=== PATIENT | male | born 1935 | race Caucasian/White ===

== ENCOUNTER 2017-10-29 20:10 | Emergency (ER) | payer MEDICARE, OTHER ==
[~2017-10-29] VITALS: Ht 193 cm; Wt 105.5 kg
[2017-10-29 20:52] VITALS: TEMP 36.4; Ht 193 cm; Wt 105.5 kg
[2017-10-29] MEDS ORDERED: ONDANSETRON INJ 2 MG/ML 2 ML VIAL IV STA (23:00)
[2017-10-29] MEDS ORDERED: SODIUM CHLORIDE 0.9% 1000ML 1,000 ML IV STA (23:00)
--- NOTE | 2017-10-29 23:03 | EMERGENCY ROOM VISIT NOTE ---
History Report prepared by Serge: David Mercer Under the Supervision of: Jc ArechigaO. First contact with patient: 22:55 Chief Complaint: GI ASSESSMENT Stated Complaint: DIARRHEA, BELCHING, TASTES LIKE SEWAGE Nursing Triage Summary: Patient states "I've been dealing with diarrhea for 2 months." Family states "I took him to [place] and they said he would be fine in a couple days. Pissed me off so we came here." History of Present Illness The patient is an 82 year old male who presents to the Emergency Room with complaints of persistent diarrhea that started 2 months ago. He states that he went to see his family doctor in [place], and had blood tests and a CT scan done , and the patient was told that everything was normal and he would be fine soon. The patient states that his diarrhea has persisted, and sometimes he moves his bowels "all night long". The patient says that his stools were not tested. He notes that his abdomen is more distended than normal, and he has been having some abdominal cramping as well. The patient says that he started vomiting today. The patient adds that he has been having intermittent shortness of breath. He notes that he drinks well-water at home, but notes no recent sick contacts. He denies any fevers. He notes a history of a cholecystectomy a few months ago, but no history of bowel blockages. Source of History: patient, family Onset: 2 months ago Position: other (global - diarrhea) Timing: other (persistent) Associated Symptoms: + SOB, + vomiting, + abdominal pain (and distension), No fevers Review of Systems See HPI for pertinent positives & negatives. A total of 10 systems reviewed and were otherwise negative. Past Medical & Surgical Medical Problems: (1) HTN (hypertension) Family History Family history omitted secondary to patient's advanced age. Social History Smoking Status: Never Smoker Smokeless Tobacco Use: No Drug Use: none Occupation Status: retired Current/Historical Medications Scheduled Atorvastatin (Lipitor), 20 MG PO QAM Cholestyramine (Cholestyramine Light), 4 GM PO BID Clopidogrel (Plavix), 75 MG PO QAM Escitalopram Oxalate (Lexapro), 5 MG PO QAM Gabapentin (Neurontin), 300 MG PO QAM Allergies Coded Allergies: No Known Allergies (Unverified , 2/15/18) Physical Exam Vital Signs Date Time Temp Pulse Resp B/P (MAP) Pulse Ox O2 Delivery O2 Flow Rate FiO2 10/30/17 00:40 80 20 133/60 92 10/29/17 22:39 82 20 139/84 92 Room Air 10/29/17 20:52 36.4 98 18 124/73 95 Room Air Physical Exam GENERAL: Patient is awake, alert, and in no acute distress. Patient is resting comfortably and showing no signs of anxiety EYES: The conjunctivae are clear. The pupils are round and reactive. EARS, NOSE, MOUTH AND THROAT: The nose is without any evidence of any deformity. Mucous membranes are moist tongue is midline NECK: The neck is nontender and supple. RESPIRATORY: Normal respiratory effort is noted there is no evidence of wheezing rhonchi or rales CARDIOVASCULAR: Regular rate and rhythm noted there no murmurs rubs or gallops normal S1 normal S2 GASTROINTESTINAL: The abdomen is moderately distended and diffusely tender. No guarding or rigidity appreciated. High pitched bowel sounds noted. MUSCULOSKELETAL/EXTREMITIES: There is no evidence of gross deformity full range of motion is noted in the hips and shoulders SKIN: Pedal edema bilaterally. NEUROLOGIC: Patient is awake alert and oriented x3. Medical Decision & Procedures ER Provider Diagnostic Interpretation: Radiology results as stated below per my review and radiologist interpretation: CHEST ONE VIEW: Elevated right hemidiaphragm, heart size appears normal, no free air, no definite infiltrate. Preliminary Findings Only See Final Report For Complete Findings CT ABDOMEN & PELVIS Without Contrast: Fluid in the small and large bowel, can be seen with enteritis or diarrheal disease. No evidence of obstruction. Thickened underdistended bladder. Correlate clinically for inflammatory/ infectious or other etiology. Mesenteric stranding with small lymph nodes, nonspecific, can be seen with mesenteric adenitis/panniculitis. Right basilar atelectasis/consolidation. A 2.4 cm hyperdense nodular density posterior to the bladder, unclear etiology. Mild nonspecific perinephric stranding. Small hepatic hypodensities. Additional incidental findings. Radiologist: Cydney Turk M.D. Study ready at 23:34 and initial results transmitted at 00:13 Laboratory Results 10/29/17 22:35 Red Blood Count 5.39, Mean Corpuscular Volume 95.7, Mean Corpuscular Hemoglobin 33.0, Mean Corpuscular Hemoglobin Concent 34.5, Mean Platelet Volume 10.5, Neutrophils (%) (Auto) 76.6, Lymphocytes (%) (Auto) 13.4, Monocytes (%) (Auto) 8.2, Eosinophils (%) (Auto) 1.2, Basophils (%) (Auto) 0.3, Neutrophils # (Auto) 5.90, Lymphocytes # (Auto) 1.03, Monocytes # (Auto) 0.63, Eosinophils # (Auto) 0.09, Basophils # (Auto) 0.02 10/29/17 22:35 Test 10/29/17 22:35 10/29/17 23:00 White Blood Count 7.69 K/uL (4.8-10.8) Red Blood Count 5.39 M/uL (4.7-6.1) Hemoglobin 17.8 g/dL (14.0-18.0) Hematocrit 51.6 % (42-52) Mean Corpuscular Volume 95.7 fL (80-100) Mean Corpuscular Hemoglobin 33.0 pg (25-34) Mean Corpuscular Hemoglobin Concent 34.5 g/dl (32-36) Platelet Count 242 K/uL (130-400) Mean Platelet Volume 10.5 fL (7.4-10.4) Neutrophils (%) (Auto) 76.6 % Lymphocytes (%) (Auto) 13.4 % Monocytes (%) (Auto) 8.2 % Eosinophils (%) (Auto) 1.2 % Basophils (%) (Auto) 0.3 % Neutrophils # (Auto) 5.90 K/uL (1.4-6.5) Lymphocytes # (Auto) 1.03 K/uL (1.2-3.4) Monocytes # (Auto) 0.63 K/uL (0.11-0.59) Eosinophils # (Auto) 0.09 K/uL (0-0.5) Basophils # (Auto) 0.02 K/uL (0-0.2) RDW Standard Deviation 49.1 fL (36.4-46.3) RDW Coefficient of Variation 14.0 % (11.5-14.5) Immature Granulocyte % (Auto) 0.3 % Immature Granulocyte # (Auto) 0.02 K/uL (0.00-0.02) Anion Gap 11.0 mmol/L (3-11) Est Creatinine Clear Calc Drug Dose 73.4 ml/min Estimated GFR () 75.6 Estimated GFR (Non- 65.2 BUN/Creatinine Ratio 18.2 (10-20) Calcium Level 9.6 mg/dl (8.5-10.1) Total Bilirubin 1.4 mg/dl (0.2-1) Direct Bilirubin 0.3 mg/dl (0-0.2) Aspartate Amino Transf (AST/SGOT) 33 U/L (15-37) Alanine Aminotransferase (ALT/SGPT) 45 U/L (12-78) Alkaline Phosphatase 105 U/L (45-117) Total Protein 8.5 gm/dl (6.4-8.2) Albumin 4.1 gm/dl (3.4-5.0) Lipase 165 U/L (73-393) Urine Color DK YELLOW Urine Appearance CLEAR (CLEAR) Urine pH 5.0 (4.5-7.5) Urine Specific [place] 1.029 (1.000-1.030) Urine Protein 1+ (NEG) Urine Glucose (UA) NEG (NEG) Urine Ketones TRACE (NEG) Urine Occult Blood NEG (NEG) Urine Nitrite NEG (NEG) Urine Bilirubin NEG (NEG) Urine Urobilinogen NEG (NEG) Urine Leukocyte Esterase TRACE (NEG) Urine WBC (Auto) 1-5 /hpf (0-5) Urine RBC (Auto) 0-4 /hpf (0-4) Urine Hyaline Casts (Auto) 10-30 /lpf (0-5) Urine Epithelial Cells (Auto) 20-30 /lpf (0-5) Urine Bacteria (Auto) NEG (NEG) Urine Pathogenic Casts /lpf (0) Date/Time Source Procedure Growth Status 10/29/17 23:00 Stool C.difficile Toxin B Gene (PCR) - Final No C. difficile toxin B gene detected Complete Laboratory results per my review. Medications Administered Medications (Trade) Dose Ordered Sig/Jhonny Route Start Time Stop Time Status Last Admin Dose Admin Sodium Chloride 1,000 ml @ 999 mls/hr Q1H1M STAT IV 10/29/17 23:00 10/30/17 00:00 DC 10/29/17 23:11 999 MLS/HR Ondansetron HCl (Zofran Inj) 4 mg NOW STAT IV 10/29/17 23:00 10/29/17 23:02 DC 10/29/17 23:11 4 MG ED Course 2257: The patient was evaluated in room A4B. A complete history and physical examination were performed. 2300: Ordered Zofran Inj 4 mg IV, NSS 1000 ml @ 999 mls/hr IV. 0020: Upon reevaluation, the patient is feeling better and has an appointment with his doctor tomorrow. I discussed the results and treatment plan with him. He verbalized agreement of the treatment plan. He was discharged home. Medical Decision Differential diagnosis: Etiologies such as diverticulosis, AVM, coagulopathy, colitis, inflammatory bowel disease, malignancy, [place] tear, esophagitis, peptic ulcer disease , variceal bleed, gastritis, epistaxis, fissure, hemorrhoids, as well as others were entertained. Nursing notes reviewed. The patient is an 82-year-old male who presented to emergency department for evaluation of diarrhea. The patient's been having ongoing symptoms for quite some time. He has been seen by his primary care physician as well as his local emergency department. The patient was treated with IV fluids in the emergency department. I discussed the patient's laboratory and radiographic studies with him. At this time I recommended that he follow-up with his primary care physician as scheduled and discussed possibility that he may require referral to a rolling attendant. He he was encouraged to drink plenty clear liquids and continue all medications as prescribed and return to the emergency department immediately if symptoms change worsening the need arise. Medication Reconcilliation Current Medication List: was personally reviewed by me Blood Pressure Screening Patient's blood pressure: Elevated blood pressure Blood pressure disposition: Elevated BP felt to be situational Impression Primary Impression: Diarrhea Additional Impression: Dehydration Scribe Attestation The scribe's documentation has been prepared under my direction and personally reviewed by me in its entirety. I confirm that the note above accurately reflects all work, treatment, procedures, and medical decision making performed by me. Departure Information Dispostion Home / Self-Care Prescriptions Cholestyramine (Cholestyramine Light) 4 Gm Pack 4 GM PO BID, #30 PKT Prov: Miguel Alonzo, DO 10/30/17 Referrals No Doctor, Assigned (PCP) Patient Instructions Diarrhea, My [facility] Additional Instructions Drink plenty of clear liquids. Continue all medications as prescribed. Follow- up with your family doctor in the morning as scheduled. Discussed the possibility that you may require a referral to a rolling attendant to further evaluate the cause of your diarrhea. Problem Qualifiers Primary Impression: Diarrhea Diarrhea type: unspecified type Qualified Codes: R19.7 - Diarrhea, unspecified
[2017-10-29 23:17] LABS: BASO % 0.3 %; BASO ABS # 0.02 K/uL (0-0.2); EOS % 1.2 %; EOS ABS # 0.09 K/uL (0-0.5); HEMATOCRIT 51.6 % (42-52); HEMOGLOBIN 17.8 g/dL (14.0-18.0); IG# 0.02 K/uL (0.00-0.02); LYMPH % 13.4 %; LYMPH ABS # 1.03 K/uL (1.2-3.4); MEAN CELL VOLUME 95.7 fL (80-100); MEAN CORPUSCULAR HGB CONC 34.5 g/dl (32-36); MEAN PLATELET VOLUME 10.5 fL (7.4-10.4); MONO % 8.2 %; MONO ABS # 0.63 K/uL (0.11-0.59); NEUT % 76.6 %; PLATELET COUNT 242 K/uL (130-400); RED CELL DISTRIBUTION WIDTH SD 49.1 fL (36.4-46.3); WHITE BLOOD COUNT 7.69 K/uL (4.8-10.8)
[2017-10-29] MEDS ORDERED: ESCI1TAB6 PO (23:26)
[2017-10-29] MEDS ORDERED: CLOP1TAB15 PO (23:26)
[2017-10-29] MEDS ORDERED: ATOR-22 PO (23:26)
[2017-10-29] MEDS ORDERED: GABA-113 PO (23:26)
[2017-10-29 23:28] LABS: ALBUMIN 4.1 gm/dl (3.4-5.0); CALCIUM 9.6 mg/dl (8.5-10.1); CREATININE 1.07 mg/dl (0.60-1.40); POTASSIUM 3.6 mmol/L (3.5-5.1)
[2017-10-29 23:31] LABS: TOTAL PROTEIN 8.5 gm/dl (6.4-8.2)
[2017-10-30] MEDS ORDERED: QSTP PO (00:31)
[2017-10-30 00:40] VITALS: BP 133/60; PULSE 80; O2SAT 92
--- NOTE | 2017-10-30 06:29 | DIAGNOSTIC IMAGING REPORT ---
CHEST ONE VIEW PORTABLE CLINICAL HISTORY: ABDOMINAL PAIN/GI pain COMPARISON STUDY: None FINDINGS: For history volumes. Elevation right hemidiaphragm. Minimal bibasilar atelectasis. No focal infiltrate. IMPRESSION: Minimal bibasilar atelectasis. No focal infiltrate. Poor inspiratory volumes. The above report was generated using voice recognition software. It may contain grammatical, syntax or spelling errors. Electronically signed by: Hiram Alexis M.D. 10/30/2017 6:27 AM Dictated Date/Time: 10/30/2017 6:26 AM
--- NOTE | 2017-10-30 07:18 | DIAGNOSTIC IMAGING REPORT ---
ABDOMEN AND PELVIS CT WITHOUT CONTRAST CT DOSE: 812.69 mGy.cm HISTORY: Acute vomiting with diarrhea vomiting TECHNIQUE: Multiaxial CT images of the abdomen and pelvis were performed without contrast. A dose lowering technique was utilized adhering to the principles of ALARA. COMPARISON STUDY: None. FINDINGS: Moderate right hemidiaphragmatic elevation with multifocal areas of subsegmental atelectasis/scarring of the right lung base. Mild subsegmental atelectasis/scarring is also seen within the left lung base. There is no pneumatosis or pneumoperitoneum identified. Imaged inferior cardiac chambers are mildly enlarged. Coronary arterial disease. Moderate atherosclerosis of the thoracic aorta. Indeterminate low attenuating lesions are seen throughout the liver, largest of which measures 1.3 cm within the left hepatic lobe. The largest in the right hepatic lobe measures 1.1 cm. Statistically, these would favor hepatic cysts. Prior cholecystectomy. The spleen, pancreas and right adrenal gland are unremarkable. There is mild nodular thickening of the left adrenal gland. Mild nonspecific bilateral perinephric stranding. No renal calculi or obstructive uropathy. Urinary bladder is partially decompressed demonstrates mild surrounding stranding and wall thickening. There is an ovoid circumscribed 2.4 x 1.8 cm hyperattenuating lesion posterior to the urinary bladder which appears to be contiguous with the seminal vesicles. No definite invasion into adjacent structures identified. Moderate atherosclerosis of the aorta with tortuosity. No aneurysm. No bulky retroperitoneal adenopathy. There is however prominent nonenlarged lymph nodes throughout the mid and right lower quadrant mesentery with mild associated stranding. There is no bowel obstruction identified. Small duodenal diverticulum. No definite focal bowel wall thickening. Fluid-filled nondilated colon is noted in addition to multiple nondilated fluid-filled loops of small bowel throughout the abdomen and pelvis. Mild colonic diverticulosis without CT evidence of acute diverticulitis. There are multiple appendicoliths noted within a nondilated and noninflamed appendix. Small fat filled periumbilical hernia, diastases 1.8 cm. Soft tissues are otherwise unremarkable. Levoscoliosis of the lumbar spine. Multilevel discogenic degenerative changes, endplate spurring and facet arthrosis noted. Focal indeterminate lucent 10 mm lesion of the left pubic bone is noted with well-defined margins which may be degenerative in nature. IMPRESSION: 1. Fluid-filled nondilated loops of large and small bowel throughout the abdomen and pelvis suggest enteritis with diarrheal state. No evidence of bowel obstruction. 2. Multiple appendicoliths within a nondilated and noninflamed appendiceal lumen. 3. 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 4. Mild colonic diverticulosis without diverticulitis. 5. 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 6. Additional findings as above. Electronically signed by: Ethan Pryor M.D. 10/30/2017 7:17 AM Dictated Date/Time: 10/30/2017 7:04 AM
== END 2017-10-30 00:43 | disposition home or self-care (01) ==
LOC: C.EDB 20:12 → C.EDA 10-30 00:43
DX: R19.7 Diarrhea, unspecified (principal); E86.0 Dehydration; R11.10 Vomiting, unspecified; R14.0 Abdominal distension (gaseous); R06.02 Shortness of breath; I10 Essential (primary) hypertension; Z79.02 Long term (current) use of antithrombotics/antiplatelets; Z79.899 Other long term (current) drug therapy